=== PATIENT | female | born 1985 | race Caucasian/White ===

== ENCOUNTER 2016-12-08 15:21 | Emergency (ER) | payer MEDICAID ==
[~2016-12-08] VITALS: Ht 175.3 cm; Wt 98.5 kg
[~2016-12-08 15:21] MED LIST: ALBU8I INH; VITA100T2 PO
[2016-12-08 15:24] VITALS: BP 116/67; PULSE 96; RESP 18; TEMP 98.4; O2SAT 94
[2016-12-08] MEDS ORDERED: prenatal vitamin (15:46)
[2016-12-08] MEDS ORDERED: ALBUAER3 INH ×2 (15:46→17:14)
[2016-12-08] MEDS ORDERED: IPRASOL INH ×2 (15:46→17:14)
[2016-12-08 15:51] VITALS: BP 113/73; PULSE 90; RESP 21; TEMP 99.3; O2SAT 97
--- NOTE | 2016-12-08 16:21 | PD ---
HPI Chief Complaint: Cold / Flu Symptoms Time Seen by Provider: 15:59 Travel History International Travel<30 days: No Contact w/Intl Traveler<30days: No Traveled to known affect area: No History of Present Illness HPI Patient is a 31-year-old female 33 weeks presents emergency department for evaluation of cough and sinus congestion. States been going on for the past few days. She also states that she noticed a small pustule forming on the right side of her face just lateral to the nose. She is wondering if he she decided since is coming through her pores. Despite being 33 weeks the patient still is smoking. She denies any abdominal pain abdominal cramping vaginal bleeding or vaginal discharge or loss of fluid. States symptoms are moderate, constant, no alleviating or exacerbating factors. PFSH Past Medical History Anemia: Yes Arthritis: Yes Asthma: Yes Blood Disorders: No Bipolar Disorder: Yes Anxiety: Yes Depression: Yes Heart Rhythm Problems: No Cancer: No Cardiovascular Problems: No High Cholesterol: No Chest Pain: No Congestive Heart Failure: No COPD: Yes Cerebrovascular Accident: No Diabetes: Yes (HX OF TYPE 2 DIABETES - PT STATES SHE "LOST WEIGHT AND IT WENT AWAY") Patient Takes Glucophage: No Diminished Hearing: No Endocrine: No Gastrointestinal Disorders: Yes (GALLSTONES) GERD: No Genitourinary: No Headaches: Yes Hiatal Hernia: No Hypertension: No Immune Disorder: No Implanted Vascular Access Dvce: No Kidney Stones: No Musculoskeletal: Yes (CHRONIC RIGHT KNEE PAIN, BACK AND NECK PAIN) Neurologic: No Psychiatric: Yes Reproductive: No Respiratory: Yes (ASTHMA ) Immunizations Current: Yes Migraines: No Myocardial Infarction: No Renal Failure: No Seizures: No Sleep Apnea: Yes Thyroid Disease: No Ulcer: No ?: : 3 Para: 3 Miscarriage: 0 : 0 Past Surgical History Abdominal Surgery: Yes (gallbladder 06/2013) Appendectomy: No Cardiac Surgery: No Cholecystectomy: Yes (JULY 2013) Ear Surgery: No Endocrine Surgery: No Eye Surgery: No Genitourinary Surgery: No Gynecologic Surgery: No Insulin Pump: No Joint Replacement: No Oral Surgery: No Thoracic Surgery: No Other Surgery: Yes (MOLE REMOVED) Social History Alcohol Use: Yes (DAILY 3) Tobacco Use: Yes (half a pack) Substance Use: No (DENISES cocaine and pot IV DRUG) Allergies-Medications (Allergen,Severity, Reaction): Coded Allergies: No Known Allergies (Verified , 12/08/16) Reported Meds & Prescriptions Reported Meds & Active Scripts Active Duoneb (Ipratropium-Albuterol Neb) 0.5-2.5 Mg/3 Ml Neb 1 Nebule INH Q4HR NEB Proair Hfa 8.5 GM Inh (Albuterol Sulfate) 90 Mcg/Act Aer 2 Puff INH Q4-6H PRN 108 mcg/actuation Keflex (Cephalexin) 500 Mg Capsule 500 Mg PO Q6H 7 Days Reported [ vitamin] Review of Systems Except as stated in HPI: all other systems reviewed are Neg Physical Exam Narrative GENERAL: Well-developed well-nourished, congested nasally voice. SKIN: Focused skin assessment warm/dry. HEAD: Atraumatic. Normocephalic. EYES: Pupils equal and round. No scleral icterus. No injection or drainage. ENT: No nasal bleeding or discharge. Mucous membranes pink and moist. TMs clear bilaterally, oropharynx showing minimal erythema, uvula midline, tonsils normal. NECK: Trachea midline. No JVD. CARDIOVASCULAR: Regular rate and rhythm. No murmur appreciated. RESPIRATORY: No accessory muscle use. Inspiratory next or wheezes and rhonchi. Breath sounds equal bilaterally. GASTROINTESTINAL: Abdomen soft, non-tender, gravid abdomen. Hepatic and splenic margins not palpable. MUSCULOSKELETAL: No obvious deformities. No clubbing. No cyanosis. No edema. NEUROLOGICAL: Awake and alert. No obvious cranial nerve deficits. Motor grossly within normal limits. Normal speech. PSYCHIATRIC: Appropriate mood and affect; insight and judgment normal. Data Data Last Documented VS Vital Signs Date Time Temp Pulse Resp B/P (MAP) Pulse Ox O2 Delivery O2 Flow Rate FiO2 12/08/16 18:14 89 20 129/64 (85) 97 12/08/16 15:51 99.3 Room Air Orders Orders Chest, Pa & Lat (12/08/16 ) Albuterol-Ipratropium Neb (Duoneb Neb) (12/08/16 17:15) MDM Medical Decision Making Medical Screen Exam Complete: Yes Emergency Medical Condition: Yes Differential Diagnosis Sinusitis, pneumonia, URI. Narrative Course Patient roomed in emergency department, recommended to her have a chest x-ray which is negative for infiltrate or effusion: Last 24 hours Impressions Chest X-Ray 12/08/16 0000 Signed Impressions: Service Date/Time: Thursday, December 08, 2016 16:37 - CONCLUSION: Hypoinflation. No acute cardiopulmonary process. Reji Campuzano MD Patient given DuoNeb, feeling somewhat better she is stable for discharge on Keflex for sinusitis. 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 heart tones were confirmed at bedside. No indication further workup in the emergency department. Diagnosis Primary Impression: Sinusitis Patient Instructions: Cigarette Smoking and Your Health (GEN), Effects of Smoking, Alcohol, and Medicines on (GEN), General Instructions, How to Stop Smoking (GEN), Sinusitis (GEN) Med/Other Pt SpecificInfo: Prescription(s) given Scripts Ipratropium-Albuterol Neb (Duoneb) 0.5-2.5 Mg/3 Ml Neb 1 NEBULE INH Q4HR NEB for SHORTNESS OF BREATH, #120 NEBULE 0 Refills Prov: Franklin Gonzales MD 12/08/16 Albuterol 8.5 GM Inh (Proair Hfa 8.5 GM Inh) 90 Mcg/Act Aer 2 PUFF INH Q4-6H Y for SHORTNESS OF BREATH, #1 INHALER 0 Refills 108 mcg/actuation Prov: Franklin Gonzales MD 12/08/16 Cephalexin (Keflex) 500 Mg Capsule 500 MG PO Q6H for Infection for 7 Days, #28 CAP 0 Refills Prov: Franklin Gonzales MD 12/08/16 Disposition: 01 DISCHARGE HOME Condition: Stable Franklin Gonzales MD Dec 08, 2016 16:21
--- NOTE | 2016-12-08 16:51 | RADRPT ---
EXAM DATE/TIME: 12/08/2016 16:37 [facility] COMPARISON: No previous studies available for comparison. INDICATIONS : Cough, chest pain. MEDICAL HISTORY : Chronic obstructive pulmonary disease. Asthma. SURGICAL HISTORY : None. ENCOUNTER: Initial ACUITY: 1 day PAIN SCORE: 0/10 LOCATION: Bilateral chest FINDINGS: PA and lateral views of the chest demonstrate the lungs to be symmetrically, but under aerated withou t evidence of mass, infiltrate or effusion. The cardiomediastinal contours are unremarkable. Osseou s structures are intact. CONCLUSION: Hypoinflation. No acute cardiopulmonary process. Reji Campuzano MD on December 08, 2016 at 16:49 Board Certified Radiologist. This report was verified electronically.
[2016-12-08] MEDS ORDERED: CEPH-460 PO (17:08)
[2016-12-08] MEDS ORDERED: RESP: ALBUTEROL 2.5 MG/IPRATROPIUM 0.5 MG NEB (SCH) NEB ONE (17:15)
[2016-12-08 18:14] VITALS: BP 129/64
== END 2016-12-08 18:19 | disposition home or self-care (01) ==
LOC: NEPD 15:21
DX: O26.893 Other specified pregnancy related conditions, third trimester (principal); J32.9 Chronic sinusitis, unspecified; O99.013 Anemia complicating pregnancy, third trimester; O99.343 Other mental disorders complicating pregnancy, third trimester; F31.9 Bipolar disorder, unspecified; J44.9 Chronic obstructive pulmonary disease, unspecified; J45.909 Unspecified asthma, uncomplicated; O99.333 Smoking (tobacco) complicating pregnancy, third trimester; Z3A.33 33 weeks gestation of pregnancy
CPT/HCPCS: 71020; 94664; 99284

== ENCOUNTER 2016-12-13 16:55 | Emergency (ER) | payer MEDICAID ==
[~2016-12-13] VITALS: Ht 175.3 cm; Wt 125.0 kg
[~2016-12-13 16:55] MED LIST changes: -ALBU8I INH; +ALBUAER3 INH; +CEPH-460 PO; +IPRASOL INH; -VITA100T2 PO; +prenatal vitamin
[2016-12-13 17:12] VITALS: O2SAT 97
[2016-12-13] MEDS ORDERED: ALBUTEROL SULFATE 90 MCG/ACT HFA 8 GM INHALER INH ONE (17:15)
[2016-12-13] MEDS ORDERED: SODIUM CHLORIDE 0.9% FLUSH 10 ML FLUSH IVF PRN ×2 (17:15)
[2016-12-13 17:26] VITALS: BP 119/73; PULSE 98; RESP 18; TEMP 98.2
--- NOTE | 2016-12-13 17:31 | RADRPT ---
EXAM DATE/TIME: 12/13/2016 17:11 [facility] COMPARISON: CHEST SINGLE AP, April 21, 2015, 22:02. INDICATIONS : Short of breath. MEDICAL HISTORY : None. SURGICAL HISTORY : None. ENCOUNTER: Initial ACUITY: 1 day PAIN SCORE: 7/10 LOCATION: Bilateral chest FINDINGS: A single view of the chest demonstrates the lungs to be symmetrically aerated without evidence of mas s, infiltrate or effusion. The cardiomediastinal contours are unremarkable. Osseous structures are intact. CONCLUSION: No acute disease. Azar Rodriguez MD on December 13, 2016 at 17:29 Board Certified Radiologist. This report was verified electronically.
[2016-12-13 17:52] LABS: AUTOMATED NEUTROPHIL # 5.7 TH/MM3 (1.8-7.7); BASOPHIL % 0.4 % (0.0-2.0); EOSINOPHIL # 0.1 TH/MM3 (0-0.4); EOSINOPHIL % 1.6 % (0.0-4.0); HEMATOCRIT 31.8 % (35.0-46.0); HEMO FLAGS DIFF FINAL; LYMPH % 26.1 % (9.0-44.0); LYMPHOCYTE # 2.2 TH/MM3 (1.0-4.8); MEAN CELL VOLUME 82.3 FL (80.0-100.0); MEAN CORPUSCULAR HEMOGLOBIN 27.3 PG (27.0-34.0); MEAN CORPUSCULAR HGB CONC 33.2 % (32.0-36.0); MONO % 4.6 % (0.0-8.0); NEUT % 67.3 % (16.0-70.0); PLATELET COUNT 195 TH/MM3 (150-450); RED BLOOD COUNT 3.86 MIL/MM3 (4.00-5.30); RED CELL DISTRIBUTION WIDTH 13.7 % (11.6-17.2); WHITE BLOOD COUNT 8.5 TH/MM3 (4.0-11.0)
--- NOTE | 2016-12-13 18:06 | PD ---
HPI Chief Complaint: Respiratory Distress Time Seen by Provider: 17:07 Travel History International Travel<30 days: No Contact w/Intl Traveler<30days: No Traveled to known affect area: No History of Present Illness HPI The patient is 31 years old and complains of shortness of breath. She has history of asthma and COPD. She smokes. She is 37 weeks . 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 She has no chest pain. She does complain of low back pain primarily on the left. PFSH Past Medical History Anemia: Yes Arthritis: Yes Asthma: Yes Blood Disorders: No Bipolar Disorder: Yes Anxiety: Yes Depression: Yes Heart Rhythm Problems: No Cancer: No Cardiovascular Problems: No High Cholesterol: No Chest Pain: No Congestive Heart Failure: No COPD: Yes Cerebrovascular Accident: No Diabetes: Yes (HX OF TYPE 2 DIABETES - PT STATES SHE "LOST WEIGHT AND IT WENT AWAY") Patient Takes Glucophage: No Diminished Hearing: No Endocrine: No Gastrointestinal Disorders: Yes (GALLSTONES) GERD: No Genitourinary: No Headaches: Yes Hiatal Hernia: No Hypertension: No Immune Disorder: No Implanted Vascular Access Dvce: No Kidney Stones: No Musculoskeletal: Yes (CHRONIC RIGHT KNEE PAIN, BACK AND NECK PAIN) Neurologic: No Psychiatric: Yes Reproductive: No Respiratory: Yes (ASTHMA ) Immunizations Current: Yes Migraines: No Myocardial Infarction: No Renal Failure: No Seizures: No Sleep Apnea: Yes Thyroid Disease: No Ulcer: No ?: : 3 Para: 3 Miscarriage: 0 : 0 Past Surgical History Abdominal Surgery: Yes (gallbladder 06/2013) Appendectomy: No Cardiac Surgery: No Cholecystectomy: Yes (JULY 2013) Ear Surgery: No Endocrine Surgery: No Eye Surgery: No Genitourinary Surgery: No Gynecologic Surgery: No Insulin Pump: No Joint Replacement: No Neurologic Surgery: No Oral Surgery: No Thoracic Surgery: No Other Surgery: Yes (MOLE REMOVED) Social History Alcohol Use: Yes (DAILY 3) Tobacco Use: Yes (half a pack) Substance Use: No (DENISES cocaine and pot IV DRUG) Allergies-Medications (Allergen,Severity, Reaction): Coded Allergies: No Known Allergies (Verified , 12/08/16) Reported Meds & Prescriptions Reported Meds & Active Scripts Active Duoneb (Ipratropium-Albuterol Neb) 0.5-2.5 Mg/3 Ml Neb 1 Nebule INH Q4HR NEB Proair Hfa 8.5 GM Inh (Albuterol Sulfate) 90 Mcg/Act Aer 2 Puff INH Q4-6H PRN 108 mcg/actuation Keflex (Cephalexin) 500 Mg Capsule 500 Mg PO Q6H 7 Days Reported [ vitamin] Physical Exam Narrative GENERAL: 31 yo F, WNWD, speaking sentences SKIN: Warm and dry. HEAD: Atraumatic. Normocephalic. EYES: Pupils equal and round. No scleral icterus. No injection or drainage. ENT: No nasal bleeding or discharge. Mucous membranes pink and moist. NECK: Trachea midline. No JVD. CARDIOVASCULAR: Regular rate and rhythm. RESPIRATORY: Lungs clear. No significant tachypnea. GASTROINTESTINAL: Abdomen soft, non-tender, nondistended. Hepatic and splenic margins not palpable. MUSCULOSKELETAL: Extremities without clubbing, cyanosis, or edema. No obvious deformities. NEUROLOGICAL: Awake and alert. No obvious cranial nerve deficits. Motor grossly within normal limits. Five out of 5 muscle strength in the arms and legs. Normal speech. PSYCHIATRIC: Appropriate mood and affect; insight and judgment normal. Data Data Last Documented VS Vital Signs Date Time Temp Pulse Resp B/P (MAP) Pulse Ox O2 Delivery O2 Flow Rate FiO2 12/13/16 17:26 98.2 98 18 119/73 (88) 12/13/16 17:25 97 Nasal Cannula 2.00 VS reviewed Orders Orders Iv Access Insert/Monitor (12/13/16 17:07) Ecg Monitoring (12/13/16 17:07) Oximetry (12/13/16 17:07) Oxygen Administration (12/13/16 17:07) Chest, Single Ap (12/13/16 17:07) Sodium Chloride 0.9% Flush (Ns Flush) (12/13/16 17:15) Albuterol Hfa Inh (Proair Hfa Inh) (12/13/16 17:15) Electrocardiogram (12/13/16 17:07) Basic Metabolic Panel (Bmp) (12/13/16 17:07) Complete Blood Count With Diff (12/13/16 17:07) Oxygen Administration (12/13/16 17:07) Sodium Chloride 0.9% Flush (Ns Flush) (12/13/16 17:15) Urinalysis - C+S If Indicated (12/13/16 18:06) Acetaminophen (Tylenol) (12/13/16 18:15) Labs Laboratory Tests Test 12/13/16 17:21 12/13/16 18:14 White Blood Count 8.5 TH/MM3 Red Blood Count 3.86 MIL/MM3 Hemoglobin 10.5 GM/DL Hematocrit 31.8 % Mean Corpuscular Volume 82.3 FL Mean Corpuscular Hemoglobin 27.3 PG Mean Corpuscular Hemoglobin Concent 33.2 % Red Cell Distribution Width 13.7 % Platelet Count 195 TH/MM3 Mean Platelet Volume 9.8 FL Neutrophils (%) (Auto) 67.3 % Lymphocytes (%) (Auto) 26.1 % Monocytes (%) (Auto) 4.6 % Eosinophils (%) (Auto) 1.6 % Basophils (%) (Auto) 0.4 % Neutrophils # (Auto) 5.7 TH/MM3 Lymphocytes # (Auto) 2.2 TH/MM3 Monocytes # (Auto) 0.4 TH/MM3 Eosinophils # (Auto) 0.1 TH/MM3 Basophils # (Auto) 0.0 TH/MM3 CBC Comment DIFF FINAL Differential Comment Blood Urea Nitrogen 4 MG/DL Creatinine 0.59 MG/DL Random Glucose 126 MG/DL Calcium Level 8.1 MG/DL Sodium Level 138 MEQ/L Potassium Level 3.5 MEQ/L Chloride Level 106 MEQ/L Carbon Dioxide Level 23.6 MEQ/L Anion Gap 8 MEQ/L Estimat Glomerular Filtration Rate 117 ML/MIN Urine Color YELLOW Urine Turbidity HAZY Urine pH 6.0 Urine Specific [place] 1.025 Urine Protein 30 mg/dL Urine Glucose (UA) NEG mg/dL Urine Ketones NEG mg/dL Urine Occult Blood NEG Urine Nitrite NEG Urine Bilirubin NEG Urine Urobilinogen 2.0 MG/DL Urine Leukocyte Esterase NEG Urine RBC 1 /hpf Urine WBC 2 /hpf Urine Squamous Epithelial Cells 13 /hpf Urine Mucus FEW /lpf Microscopic Urinalysis Comment CULT NOT INDICATED MDM Medical Decision Making Medical Screen Exam Complete: Yes Emergency Medical Condition: Yes Medical Record Reviewed: Yes Differential Diagnosis Asthma, COPD, anemia, PE, UTI Narrative Course CBC & BMP Diagram 12/13/16 17:21 Calcium Level 8.1 L Last 24 hours Impressions Chest X-Ray 12/13/16 4830 Signed Impressions: Service Date/Time: Tuesday, December 13, 2016 17:11 - CONCLUSION: No acute disease. Azar Rodriguez MD Pt received inhaler and experienced significant relief. UA: No UTI The patient is ready for discharge. Evaluation by obstetrics offered. Follow up with [facility] Manager Lilian Duenas. Diagnosis Primary Impression: Dyspnea Qualified Codes: R06.09 - Other forms of dyspnea Additional Impressions: Wheezing Low back pain Qualified Codes: M54.5 - Low back pain Referrals: [facility] 3 days Med/Other Pt SpecificInfo: Prescription(s) given Disposition: DISCHARGE HOME Condition: Stable Carlo Peralta MD Dec 13, 2016 18:06
[2016-12-13 18:14] LABS: BICARBONATE 23.6 MEQ/L (21.0-32.0); POTASSIUM 3.5 MEQ/L (3.5-5.1)
[2016-12-13] MEDS ORDERED: ACETAMINOPHEN 325 MG TAB PO ONE (18:15)
[2016-12-13 19:10] LABS: BLOOD, URINE NEG (NEG); COMMENT (UR) CULT NOT INDICATED; CULTURE IF INDICATED CULT NOT INDICATED; GLUCOSE,URINE NEG (NEG); KETONE, URINE NEG (NEG); MUCUS URINE FEW /lpf (OCC); NITRITE,URINE NEG (NEG); SQUAMOUS EPITHELIAL CELL URINE 13 /hpf (0-5); URINE COLOR YELLOW (YELLW/STRAW)
--- NOTE | 2016-12-14 14:16 | EKG ---
Date Performed: 12/13/2016 Time Performed: 17:18:17 PTAGE: 31 years EKG: Sinus rhythm NORMAL ECG Compared to prior tracing no significant change PREVIOUS TRACING : 01/25/2016 23.54 DOCTOR: Blu Hoff Interpretating Date/Time 12/14/2016 14:15:28
== END 2016-12-13 20:32 | disposition home or self-care (01) ==
LOC: NEPD 16:55
DX: O99.513 Diseases of the respiratory system complicating pregnancy, third trimester (principal); O99.333 Smoking (tobacco) complicating pregnancy, third trimester; J45.909 Unspecified asthma, uncomplicated; J44.9 Chronic obstructive pulmonary disease, unspecified; M54.5 Low back pain; D64.9 Anemia, unspecified; Z3A.37 37 weeks gestation of pregnancy
CPT/HCPCS: 71010; 80048; 81001; 85025; 93005; 99285

== ENCOUNTER 2017-01-22 08:28 | Inpatient (IN) | payer MEDICAID ==
[2017-01-22] VITALS (38 sets, daily range): BP systolic 105–152; BP diastolic 61–95; PULSE 71–95; RESP 16–20; TEMP 97.8–98.6
[2017-01-22] MEDS ORDERED: LACTATED RINGER'S 1000 ML INJ 1,000 ML IV SCH (09:39)
[2017-01-22] MEDS ORDERED: LACTATED RINGER'S 1000 ML INJ 1,000 ML IV PRN (09:39)
[2017-01-22] MEDS ORDERED: LIDOCAINE HCL 1% 50 ML VIAL INFIL PRN (09:45)
[2017-01-22] MEDS ORDERED: ONDANSETRON HCL 4 MG/2 ML VIAL IV PUSH PRN (09:45)
[2017-01-22] MEDS ORDERED: LIDOCAINE HCL 1% 50 ML VIAL I-DERMAL PRN (09:45)
[2017-01-22] MEDS ORDERED: SODIUM CHLORID 0.9% 500 ML INJ 500 ML IV PRN (09:45)
[2017-01-22] MEDS ORDERED: MINERAL OIL 10 ML VIAL TOPICAL PRN (09:45)
[2017-01-22] MEDS ORDERED: CITRIC ACID-SODIUM CITRATE LIQ 30 ML UDC PO SCH (09:45)
[2017-01-22] MEDS ORDERED: OXYTOCIN 30 UNITS-500ML PREMIX 500 ML IV ONE (09:45)
--- NOTE | 2017-01-22 09:54 | HHI.HP ---
HPI Travel History International Travel<30 Days: No Contact w/Intl Traveler<30Days: No Known Affected Area: No History of Present Illness HPI 31 yr old at 41/4 weeks presents for induction of labor for postdates. Accompanied by significant other and adoptive parents. She is a patient of Lilian Duenas. Her GBS status is currently unknown. We will obtain her records from primary care's office. She denies contractions, LOF, and vaginal bleeding. She is planning to give her baby up for adoption. History Past Medical History Medical History: Denies Significant Hx Obstetric History Obstetric History 3 vaginal deliveries and all induced for postdates 1 early loss Past Surgical History Surgical History: No Previous Surgery Family History Family History: Negative Social History Alcohol Use: No Tobacco Use: No Substance Abuse: No Allergies-Medications (Allergen,Severity, Reaction): Coded Allergies: No Known Allergies (Verified , 12/08/16) Home Meds Active Scripts Ipratropium-Albuterol Neb (Duoneb) 0.5-2.5 Mg/3 Ml Neb, 1 NEBULE INH Q4HR NEB for SHORTNESS OF BREATH, #120 NEBULE 0 Refills Prov:Franklin Gonzales MD 12/08/16 Albuterol 8.5 GM Inh (Proair Hfa 8.5 GM Inh) 90 Mcg/Act Aer, 2 PUFF INH Q4-6H Y for SHORTNESS OF BREATH, #1 INHALER 0 Refills 108 mcg/actuation Prov:Franklin Gonzales MD 12/08/16 Cephalexin (Keflex) 500 Mg Capsule, 500 MG PO Q6H for Infection for 7 Days, #28 CAP 0 Refills Prov:Franklin Gonzales MD 12/08/16 Reported Medications [ vitamin] No Conflict Check 12/08/16 Review of Systems Except as stated in HPI: all other systems reviewed are Neg Physical Exam Narrative GENERAL: Well-nourished, well-developed patient. SKIN: Warm and dry. HEAD: Normocephalic and atraumatic. EYES: No scleral icterus. No injection or drainage. ENT: No nasal drainage noted. Mucous membranes pink. Airway patent. NECK: Supple, trachea midline. No JVD. CARDIOVASCULAR: Regular rate and rhythm without murmurs, gallops, or rubs. RESPIRATORY: Breath sounds equal bilaterally. No accessory muscle use. ABDOMEN/GI: Abdomen soft, non-tender, bowel sounds present, no rebound, no guarding GENITOURINARY: Cervix: posterior Dilatation: 4-5cm Effacement: 30% Station: -2 Presentation: vertex Membranes: intact Uterine Contractions: none FHT's: Category: 1 Baseline: 130s Reactive: yes Variability: moderate Decels: no EXTREMITIES: No cyanosis or edema. BACK: Nontender without obvious deformity. NEUROLOGICAL: Awake and alert. Motor and sensory grossly within normal limits. Caprini VTE Risk Assessment Caprini VTE Risk Assessment: No/Low Risk (score <= 1) Caprini Risk Assessment Model Point Value = 1 Point Value = 2 Point Value = 3 Point Value = 5 Age 41-60 Minor surgery BMI > 25 kg/m2 Swollen legs Varicose veins or History of unexplained or recurrent spontaneous Oral contraceptives or hormone replacement Sepsis (< 1 month) Serious lung disease, including pneumonia (< 1 month) Abnormal pulmonary function Acute myocardial infarction Congestive heart failure (< 1 month) History of inflammatory bowel disease Medical patient at bed rest Age 61-74 Arthroscopic surgery Major open surgery (> 45 min) Laparoscopic surgery (> 45 min) Malignancy Confined to bed (> 72 hours) Immobilizing plaster cast Central venous access Age >= 75 History of VTE Family history of VTE Factor V Leiden Prothrombin [id number] Lupus anticoagulant Anticardiolipin antibodies Elevated serum homocysteine Heparin-induced thrombocytopenia Other congenital or acquired thrombophilia Stroke (< 1 month) Elective arthroplasty Hip, pelvis, or leg fracture Acute spinal cord injury (< 1 month) Prophylaxis Regimen Total Risk Factor Score Risk Level Prophylaxis Regimen 0-1 Low Early ambulation 2 Moderate Order ONE of the following: *Sequential Compression Device (SCD) *Heparin 5000 units SQ BID 3-4 Higher Order ONE of the following medications: *Heparin 5000 units SQ TID *Enoxaparin/Lovenox 40 mg SQ daily (WT < 150 kg, CrCl > 30 mL/min) *Enoxaparin/Lovenox 30 mg SQ daily (WT < 150 kg, CrCl > 10-29 mL/min) *Enoxaparin/Lovenox 30 mg SQ BID (WT < 150 kg, CrCl > 30 mL/min) AND/OR *Sequential Compression Device (SCD) 5 or more Highest Order ONE of the following medications: *Heparin 5000 units SQ TID (Preferred with Epidurals) *Enoxaparin/Lovenox 40 mg SQ daily (WT < 150 kg, CrCl > 30 mL/min) *Enoxaparin/Lovenox 30 mg SQ daily (WT < 150 kg, CrCl > 10-29 mL/min) *Enoxaparin/Lovenox 30 mg SQ BID (WT < 150 kg, CrCl > 30 mL/min) AND *Sequential Compression Device (SCD) Data Data Vital Signs Reviewed: Yes Orders Orders Admit To Inpatient (01/22/17 ) Code Status (01/22/17 09:39) Vital Signs (Adult) .Per protocol (01/22/17 09:39) Activity Oob Ad Kadie (01/22/17 09:39) Heart (01/22/17 09:39) Amnioinfusion (01/22/17 09:39) Urinary Catheter Management .ONCE (01/22/17 09:39) Diet Liquid (01/22/17 Breakfast) Lactated Ringer's 1000 Ml Inj (Lr 1000 M (01/22/17 09:39) Lactated Ringer's 1000 Ml Inj (Lr 1000 M (01/22/17 09:39) Sodium Chlorid 0.9% 500 Ml Inj (Ns 500 M (01/22/17 09:45) Sodium Chlor 0.9% 1000 Ml Inj (Ns 1000 M (01/22/17 09:59) Lidocaine 1% Inj (50 Ml) (Xylocaine 1% I (01/22/17 09:45) Citric Acid-Sodium Citrate Liq (Bicitra (01/22/17 09:45) Ondansetron Inj (Zofran Inj) (01/22/17 09:45) Fentanyl Inj (Fentanyl Inj) (01/22/17 09:45) Fentanyl Inj (Fentanyl Inj) (01/22/17 09:45) Complete Blood Count With Diff (01/22/17 09:39) Hold Clot (01/22/17 09:39) Abo/Rh Blood Type (01/22/17 09:39) Urinalysis - C+S If Indicated (01/22/17 09:39) Drug Screen, Random Urine (01/22/17 09:39) Resp Oxygen Non Rebreathe Mask (01/22/17 ) ^ Epidural / Intrathecal Infus (01/22/17 09:39) Oxytocin 30 Units-500ml Premix (Pitocin (01/22/17 09:45) Lidocaine 1% Inj (50 Ml) (Xylocaine 1% I (01/22/17 09:45) Light Mineral Oil (Muri-Lube Oil) (01/22/17 09:45) Inpatient Certification (01/22/17 ) Specimen To Be Collected PRN (01/22/17 09:39) Specimen To Be Collected PRN (01/22/17 09:39) Assessment/Plan Assessment and Plan 31 yr old at 41/4 weeks presents for induction of labor for postdates. 1. IUP -category 1, reassuring 2. Induction of Labor -4-5cm, 30%, -2, Carlson score of 5 -will consider AROM, cytotec or pitocin for induction -continue routine OB care 3. GBS unknown, will get records faxed over from Lilian Duenas's office sdw Dr. Nieves and Keena Craven MD R1 Jan 22, 2017 09:54
[2017-01-22] MEDS ORDERED: SODIUM CHLOR 0.9% 1000 ML INJ 1,000 ML IV PRN (09:59)
[2017-01-22 10:05] LABS: BASOPHIL % 0.3 % (0.0-2.0); EOSINOPHIL # 0.1 TH/MM3 (0-0.4); EOSINOPHIL % 1.3 % (0.0-4.0); HEMATOCRIT 27.7 % (35.0-46.0); HEMOGLOBIN 9.2 GM/DL (11.6-15.3); LYMPHOCYTE # 1.8 TH/MM3 (1.0-4.8); MEAN CELL VOLUME 82.1 FL (80.0-100.0); MEAN CORPUSCULAR HEMOGLOBIN 27.2 PG (27.0-34.0); MEAN CORPUSCULAR HGB CONC 33.1 % (32.0-36.0); MEAN PLATELET VOLUME 10.8 FL (7.0-11.0); MONO % 5.3 % (0.0-8.0); MONOCYTE # 0.4 TH/MM3 (0-0.9); NEUT % 68.1 % (16.0-70.0); PLATELET COUNT 146 TH/MM3 (150-450); RED BLOOD COUNT 3.37 MIL/MM3 (4.00-5.30); RED CELL DISTRIBUTION WIDTH 14.3 % (11.6-17.2); WHITE BLOOD COUNT 7.3 TH/MM3 (4.0-11.0)
[2017-01-22 10:20] LABS: BACTERIA, URINE OCC /hpf; BILIRUBIN, URINE NEG (NEG); BLOOD, URINE NEG (NEG); GLUCOSE,URINE NEG (NEG); KETONE, URINE NEG (NEG); MUCUS URINE FEW /lpf (OCC); NITRITE,URINE NEG (NEG); SQUAMOUS EPITHELIAL CELL URINE 15 /hpf (0-5); URINE COLOR YELLOW (YELLW/STRAW); URINE LEUKOCYTE ESTERASE TRACE (NEG)
[2017-01-22] MEDS ORDERED: MISOPROSTOL 100 MCG TAB VAGINAL ONE (11:30)
[2017-01-22] MEDS ORDERED: PILL SPLITTER OTHER PRN (11:30)
--- NOTE | 2017-01-22 15:50 | PD.LABORPN ---
Subjective Subjective AROM by Dr. Nieves. Patient doing well. No complaints at this time. Objective Vital Signs Vital Signs Date Time Temp Pulse Resp B/P (MAP) Pulse Ox O2 Delivery O2 Flow Rate FiO2 01/22/17 14:36 78 117/69 (85) 01/22/17 14:34 18 01/22/17 14:34 98.4 01/22/17 11:45 16 01/22/17 11:30 79 121/66 (84) Objective Pelvic Exam: Cervix: mid Dilatation: 6cm Effacement: 50% Station: -1 Presentation: vertex Membranes: AROM Uterine Contractions: FHT's: Category: 1 Baseline: 120s Reactive: yes Variability: moderate Decels: no Weeks Gestation: 41 Gest Age Assessed Date: Jan 22, 2017 Gest Age Assessed Time: 09:15 Pt started active labor?: Yes Active labor start date: Jan 22, 2017 Active labor start time: 09:15 Medical induction of labor?: Yes Medical induction start date: Jan 22, 2017 Medical induction start time: 11:30 Artificial rupture of membrane: Yes Artificial ROM date: Jan 22, 2017 Artifical ROM time: 15:49 Assessment/Plan Assessment and Plan 31 yr old at 41/4 weeks in active labor 1. IUP -category 1, reassuring 2.Labor -s/p AROM, cytotec x1 -start pitocin -continue routine OB care 3. GBS negative, confirmed by faxed records sdw Dr. Nieves and Keena Llanes MD R1 Jan 22, 2017 15:50
[2017-01-22] MEDS ORDERED: MEASLES, MUMPS, RUBELLA VACCINE 0.5 ML VIAL SQ ONE (16:00)
[2017-01-22] MEDS ORDERED: DIPHTH/TETANUS/ACEL PERTUSSIS (BOOSTER) 0.5 ML VIAL/PFS IM ONE (16:00)
[2017-01-22] MEDS ORDERED: OXYTOCIN 30 UNITS-500ML PREMIX 500 ML IV SCH (16:45)
[2017-01-22] MEDS ORDERED: fentaNYL 2MCG-BUPIV 0.125% INJ 100 ML ONE (17:22)
[2017-01-22] MEDS ORDERED: fentaNYL 2MCG-BUPIV 0.125% 100 ML EPIDURAL SCH (18:30)
[2017-01-22] MEDS ORDERED: NO SYSTEM NARCOTICS PRN (18:30)
[2017-01-22] MEDS ORDERED: ePHEDrine/NS 25 MG/5 ML SYR IV PUSH PRN (18:30)
[2017-01-22] MEDS ORDERED: DO NOT ADMINISTER ANTICOAGULANTS PRN (18:30)
[2017-01-22] MEDS ORDERED: ALUMINUM/MAGNESIUM/SIMETH 30 ML CUP PO PRN (19:00)
[2017-01-22] MEDS ORDERED: BENZOCAINE 20% TOPICAL SPRAY 60 ML CAN TOPICAL PRN (19:00)
[2017-01-22] MEDS ORDERED: WITCH HAZEL 50%/GLYCERIN 12.5% 40 PAD JAR TOPICAL PRN (19:00)
[2017-01-22] MEDS ORDERED: ONDANSETRON ODT 4 MG TAB PO PRN (19:00)
[2017-01-22] MEDS ORDERED: SODIUM CHLORIDE 0.9% FLUSH 10 ML FLUSH IV FLUSH PRN (19:00)
[2017-01-22] MEDS ORDERED: ZOLPIDEM TARTRATE 5 MG TAB PO PRN (19:00)
[2017-01-22] MEDS ORDERED: ACETAMINOPHEN 325 MG TAB PO PRN (19:00)
--- NOTE | 2017-01-22 19:07 | PD.OB.DELI ---
Weeks gestation: 41 Gest age assessed date: Jan 22, 2017 Gest age assessed time: 09:15 Pt started active labor?: Yes Active labor start date: Jan 22, 2017 Active labor start time: 09:15 Medical induction of labor?: Yes Medical induction start date: Jan 22, 2017 Medical induction start time: 11:30 Artificial rupture of membrane: Yes Artificial ROM date: Jan 22, 2017 Artifical ROM time: 15:49 Anesthesia: Epidural Episiotomy: None Vaginal Delivery: Normal, Spontaneous Presentation: Occiput anterior Nuchal Cord: None Delayed cord clamping (45 sec): Yes Infant: Male Delivery date: Jan 22, 2017 Delivery time: 06:49 One Minute : 7 Five Minute : 9 Weight: 3025g Placenta: Spontaneous delivery Laceration: No lacerations Keena Fairbanks MD R1 Jan 22, 2017 19:07
[2017-01-22] MEDS ORDERED: SODIUM CHLORIDE 0.9% FLUSH 10 ML FLUSH IV FLUSH SCH (21:00)
[2017-01-22] MEDS: IBUPROFEN 600 MG TAB PO PRN (22:29)
[2017-01-22] MEDS: DOCUSATE SODIUM 50 MG/SENNA 8.6 MG TAB PO PRN (22:30)
[2017-01-23 07:30] VITALS: BP 98/64; PULSE 76; RESP 18; TEMP 97.7
[2017-01-23] MEDS ORDERED: KETOROLAC TROMETHAMINE 60 MG/2 ML (IM) VIAL IM ONE (09:15)
--- NOTE | 2017-01-23 09:24 | HHI.OB ---
Subjective Remarks 31 year old female s/p at 41 wks gestation, PPD 1. AFVSS. Patient reports she is feeling well. Bleeding is decreasing and pain is well- controlled. Baby is up for adoption and is in separate room with adoptive parents. Ambulating without difficulties. She is tolerating a diet without nausea or vomiting. She has not had a bowel movement. She has passed gas. Denies chest pain, dysuria, shortness of breath, or calf pain. Objective Vitals/I&O Vital Signs Date Time Temp Pulse Resp B/P (MAP) Pulse Ox O2 Delivery O2 Flow Rate FiO2 01/23/17 07:30 97.7 76 18 98/64 (75) 01/22/17 22:10 98.0 84 18 111/73 (86) 01/22/17 20:15 98.6 18 01/22/17 20:01 86 122/76 (91) 01/22/17 19:45 18 01/22/17 19:31 81 126/84 (98) 01/22/17 19:27 18 01/22/17 19:08 16 01/22/17 19:00 88 127/73 (91) 01/22/17 18:45 95 01/22/17 18:35 86 01/22/17 18:34 20 01/22/17 18:31 79 105/61 (76) 01/22/17 18:30 79 01/22/17 18:28 20 01/22/17 18:25 74 01/22/17 18:20 71 01/22/17 18:16 76 116/69 (85) 01/22/17 18:15 97.8 01/22/17 18:15 74 01/22/17 18:10 77 01/22/17 18:05 78 01/22/17 18:01 74 124/75 (91) 01/22/17 18:00 76 01/22/17 17:58 20 01/22/17 17:56 79 130/70 (90) 01/22/17 17:55 82 01/22/17 17:51 83 138/81 (100) 01/22/17 17:50 83 01/22/17 17:46 87 147/95 (112) 01/22/17 17:45 88 20 01/22/17 17:41 82 01/22/17 17:41 136/90 (105) 01/22/17 17:40 82 01/22/17 17:36 87 152/92 (112) 01/22/17 17:35 80 01/22/17 17:32 79 01/22/17 17:29 20 01/22/17 16:03 85 117/80 (92) 01/22/17 14:36 78 117/69 (85) 01/22/17 14:34 18 01/22/17 14:34 98.4 01/22/17 11:45 16 01/22/17 11:30 79 121/66 (84) Objective Remarks GENERAL: Well-nourished, well-developed patient. CARDIOVASCULAR: Regular rate and rhythm without murmurs, gallops, or rubs. RESPIRATORY: Breath sounds equal bilaterally. No accessory muscle use. ABDOMEN/GI: Abdomen soft, non-tender. Fundus: Firm, mildly tender at umbilicus. GENITOURINARY: Light to moderate bleeding. EXTREMITIES: No cyanosis or edema, non-tender, without signs of DVT. Medications and IVs Current Medications Medications (Trade) Dose Ordered Sig/Nadya Route Start Time Stop Time Status Last Admin (Pill Splitter) 1 ea UNSCH PRN OTHER 01/22/17 11:30 Miscellaneous Information No systemic narcotics to be given except... UNSCH PRN .XX 01/22/17 18:30 01/23/17 18:29 Miscellaneous Information DO NOT ADMINISTER ANY ANTICOAGUL... UNSCH PRN .XX 01/22/17 18:30 01/23/17 18:29 (NS Flush) 2 ml BID IV FLUSH 01/22/17 21:00 01/22/17 20:32 (NS Flush) 2 ml UNSCH PRN IV FLUSH 01/22/17 19:00 (Tylenol) 650 mg Q4H PRN PO 01/22/17 19:00 (Motrin) 600 mg Q6H PRN PO 01/22/17 19:00 01/22/17 22:29 (Americaine 20% Top Spr) 1 spray Q4H PRN TOPICAL 01/22/17 19:00 01/22/17 22:29 (Tucks Pads) 1 applic QID PRN TOPICAL 01/22/17 19:00 01/22/17 22:29 (Josefina-Colace) 2 tab Q12H PRN PO 01/22/17 19:00 01/22/17 22:30 (Ambien) 5 mg HS PRN PO 01/22/17 19:00 (Mag-Al Plus Susp Liq) 15 ml Q8H PRN PO 01/22/17 19:00 (Zofran Odt) 4 mg Q6H PRN PO 01/22/17 19:00 Assessment/Plan Assessment and Plan 31 yo female s/p , PPD 1 - AFVSS - Continue routine care - Motrin PRN pain; Toradol 30 mg IM x1 to replace a dose of Motrin this morning - Encourage OOB - Pelvic rest x 6 wks - Contraception: Undecided, considering Depo-Provera - Anticipate D/C 01/24 Cresencio Nieves MD R2 Jan 23, 2017 09:24
[2017-01-23 19:55] VITALS: BP 147/83; PULSE 82
[2017-01-23 20:15] VITALS: RESP 17; TEMP 98.1
[2017-01-24] MEDS: DOCUSATE SODIUM 50 MG/SENNA 8.6 MG TAB PO PRN (06:02)
[2017-01-24] MEDS: IBUPROFEN 600 MG TAB PO PRN (06:02)
[2017-01-24 08:00] VITALS: BP 141/80; PULSE 75; RESP 18; TEMP 98.4
[2017-01-24] MEDS ORDERED: SENN1TAB PO (08:08)
[2017-01-24] MEDS ORDERED: IBUP-232 PO (08:08)
--- NOTE | 2017-01-24 08:09 | HHI.DCPOC ---
Discharge Care Plan Diagnosis: (1) (spontaneous vaginal delivery) Report Symptoms to Your Doctor -Temperature above 100.5 degrees -Redness, of incision or excessive or foul smelling drainage -Unusual pain or calf pain -Increased vaginal bleeding -Painful or difficulty urinating -Feelings of extreme sadness or anxiety after 2 weeks Goals to Promote Your Health * To prevent worsening of your condition and complications * To maintain your health at the optimal level Directions to Meet Your Goals Take your medications as prescribed Follow your dietary instruction Follow activity as directed Ensure plenty of rest for recovery Drink fluids for hydration Keep your appointments as scheduled Take your immunizations and boosters as scheduled If your symptoms worsen call your PCP, if no PCP go to Urgent Care Center or Emergency Room Smoking is Dangerous to Your Health. Avoid second hand smoke Call the 24-hour crisis hotline for domestic abuse at Sujit Pratt MD R2 Jan 24, 2017 08:09
--- NOTE | 2017-01-24 08:09 | HHI.DCPOC ---
Discharge Care Plan Diagnosis: (1) (spontaneous vaginal delivery) Report Symptoms to Your Doctor -Temperature above 100.5 degrees -Redness, of incision or excessive or foul smelling drainage -Unusual pain or calf pain -Increased vaginal bleeding -Painful or difficulty urinating -Feelings of extreme sadness or anxiety after 2 weeks Goals to Promote Your Health * To prevent worsening of your condition and complications * To maintain your health at the optimal level Directions to Meet Your Goals Take your medications as prescribed Follow your dietary instruction Follow activity as directed Ensure plenty of rest for recovery Drink fluids for hydration Keep your appointments as scheduled Take your immunizations and boosters as scheduled If your symptoms worsen call your PCP, if no PCP go to Urgent Care Center or Emergency Room Smoking is Dangerous to Your Health. Avoid second hand smoke Call the 24-hour crisis hotline for domestic abuse at Sujit Pratt MD R2 Jan 24, 2017 08:09
--- NOTE | 2017-01-24 08:09 | HHI.DCPOC ---
Discharge Care Plan Diagnosis: (1) (spontaneous vaginal delivery) Report Symptoms to Your Doctor -Temperature above 100.5 degrees -Redness, of incision or excessive or foul smelling drainage -Unusual pain or calf pain -Increased vaginal bleeding -Painful or difficulty urinating -Feelings of extreme sadness or anxiety after 2 weeks Goals to Promote Your Health * To prevent worsening of your condition and complications * To maintain your health at the optimal level Directions to Meet Your Goals Take your medications as prescribed Follow your dietary instruction Follow activity as directed Ensure plenty of rest for recovery Drink fluids for hydration Keep your appointments as scheduled Take your immunizations and boosters as scheduled If your symptoms worsen call your PCP, if no PCP go to Urgent Care Center or Emergency Room Smoking is Dangerous to Your Health. Avoid second hand smoke Call the 24-hour crisis hotline for domestic abuse at Sujit Pratt MD R2 Jan 24, 2017 08:09
--- NOTE | 2017-01-24 08:10 | HHI.OB ---
Subjective Post Day: 2 Remarks Pt seen and examined this morning. day # 2 AFVSS overnight. Decreased lochia. Denies dysuria. No breast tenderness. She is feeding the baby via bottle. Appetite good. No nausea or vomiting. Patient endorses having a bowel movement. Ambulating well. Denies calf pain or shortness of breath. Otherwise, she is doing well this morning and has no other concerns. Objective Vitals/I&O Vital Signs Date Time Temp Pulse Resp B/P (MAP) Pulse Ox O2 Delivery O2 Flow Rate FiO2 01/23/17 20:15 98.1 01/23/17 20:15 17 01/23/17 19:55 82 147/83 (104) Objective Remarks GENERAL: Well-nourished, well-developed patient. CARDIOVASCULAR: Regular rate and rhythm without murmurs, gallops, or rubs. RESPIRATORY: Breath sounds equal bilaterally. No accessory muscle use. ABDOMEN/GI: Abdomen soft, non-tender. Fundus: Firm, mildly tender at umbilicus. GENITOURINARY: Light to moderate bleeding. EXTREMITIES: No cyanosis or edema, non-tender, without signs of DVT. Medications and IVs Current Medications Medications (Trade) Dose Ordered Sig/Nadya Route Start Time Stop Time Status Last Admin (Pill Splitter) 1 ea UNSCH PRN OTHER 01/22/17 11:30 (NS Flush) 2 ml BID IV FLUSH 01/22/17 21:00 01/22/17 20:32 (NS Flush) 2 ml UNSCH PRN IV FLUSH 01/22/17 19:00 (Tylenol) 650 mg Q4H PRN PO 01/22/17 19:00 (Motrin) 600 mg Q6H PRN PO 01/22/17 19:00 01/24/17 06:02 (Americaine 20% Top Spr) 1 spray Q4H PRN TOPICAL 01/22/17 19:00 01/22/17 22:29 (Tucks Pads) 1 applic QID PRN TOPICAL 01/22/17 19:00 01/22/17 22:29 (Josefina-Colace) 2 tab Q12H PRN PO 01/22/17 19:00 01/24/17 06:02 (Ambien) 5 mg HS PRN PO 01/22/17 19:00 (Mag-Al Plus Susp Liq) 15 ml Q8H PRN PO 01/22/17 19:00 (Zofran Odt) 4 mg Q6H PRN PO 01/22/17 19:00 (Flu (Quadrivalent) Vaccine Inj) 0.5 ml ONCE ONCE IM 01/24/17 10:00 01/24/17 10:01 Assessment/Plan Assessment and Plan 31 yo female s/p , PPD 2 - AFVSS, exam within normal limits - Continue routine care - Motrin PRN pain; Toradol 30 mg IM x1 given 01/25 - Encourage OOB - Pelvic rest x 6 wks - Contraception: Undecided, considering Depo-Provera. Patient states she will discuss at her follow-up appointment in 6 weeks -Patient be discharged home today - Of note, baby will be placed up for adoption DW: Dr. Herbert Discharge Planning Today with a 6 week follow-up Of note, baby will be put up for adoption Sujit Pratt MD R2 Jan 24, 2017 08:10
[2017-01-24] MEDS ORDERED: INFLUENZA VIRUS VACCINE (QUADRIVALENT) 0.5 ML SYR IM ONE (10:00)
== END 2017-01-24 11:23 | disposition home or self-care (01) | DRG 775 ==
LOC: H2EA 08:28 → H1EA 20:26
PROVIDERS: ADMIT Obstetrics & Gynecology; ATTEND Obstetrics & Gynecology
PROC: 10E0XZZ Delivery of Products of Conception, External Approach (ICD-10-PCS; principal; 2017-01-22)
PROC: 10907ZC Drainage of Amniotic Fluid, Therapeutic from Products of Conception, Via Natural or Artificial Opening (ICD-10-PCS; 2017-01-22)
PROC: 3E0P3VZ Introduction of Hormone into Female Reproductive, Percutaneous Approach (ICD-10-PCS; 2017-01-22)
DX: O48.0 Post-term pregnancy (principal); Z23 Encounter for immunization; Z37.0 Single live birth; Z3A.41 41 weeks gestation of pregnancy
CPT/HCPCS: 80307; 81001; 85025; 86900; 86901; J1885; J3010; J7120

== ENCOUNTER 2018-02-03 10:37 | Inpatient (IN) ==
[2018-02-03] MEDS ORDERED: Dextrose 5%/Lactated Ringer's 1,000 ML IV.SIG ONE (11:44)
--- NOTE | 2018-02-03 11:48 | ED ---
History of Present Illness Primary Care Physician: No Primary Care Physician Chief Complaint: Elevated BP & 15+ protein in urine History of Present Illness: 32-year-old female at 39/5 weeks gestation with history of gestational diabetes, asthma and methadone use Presents OB ED for blood pressure up to 160/ 102 and 50+ protein in her urine. Patient denies headache, blurry vision, change in vision, lightheaded dizziness, nausea, vomiting, reflux, or right upper quadrant abdominal pain. Patient was diagnosed with gestational diabetes during this , but states she is not on any insulin. She thinks that the test was incorrect because she "drink fluid right before". Denies contractions, gush of fluid, vaginal bleeding, or decreased movement. Patient is currently in longterm and is accompanied by 2 correctional officers at bedside. Started methadone 70 mg daily about 2 weeks ago. She was started on methadone to avoid opiate withdrawal. Was prescribed opiates chronically for back pain. history: 4 prior pregnancies with induced vaginal deliveries at 42 weeks each time. Denies delivery or complications during this . Past medical history: Asthma, uses albuterol nebulizing treatments. Gestational diabetes during the , not on medication. History of opiate abuse, now on methadone. Hep C. Medications: Methadone 70 mg daily, started 2 weeks ago. Allergies: NKDA Social history: Smokes 1 pack every 3-4 days. Denies alcohol or other drug use during this . Patient was receiving care since the first trimester with Dr. Kirkpatrick, but recently switched to industrial maintenance repairer, Lilian Duenas. [facility] - History History Provided By: Patient - Medical History Medical History: Medical History (Last Updated 02/03/18 @ 14:37 by Lashanda Banuelos DO, R1) Asthma Hepatitis C - Tobacco History Second Hand Smoke Exposure: Yes Smoking Status: Current every day smoker Tobacco Type: Cigarettes Packs Per Day: 0.25 Cigarettes Per Day: 5.0 - Alcohol History How Often Do You Have a Drink Containing Alcohol: 2 to 4 times a month - Substance Use History Substance History: Past History - Travel History Recent Travel in the [place] Within the Last 8 Weeks: No Recent Travel Out of the Country Within the Last 8 Weeks: No Medications and Allergies Allergies Allergy/AdvReac Type Severity Reaction Status Date / Time No Known Allergies Allergy Verified 02/03/18 11:03 Home Medications Medication Instructions Recorded Confirmed Type methadone 70 mg PO DAILY 02/03/18 02/07/18 History Exam Vital signs: Vital Signs 02/03/18 11:06 02/03/18 11:15 Pulse Rate 76 65 Blood Pressure 133/77 124/92 H Intake & Output 02/02/18 02/03/18 02/03/18 18:59 06:59 18:59 Weight 139.706 kg Narrative: GENERAL: Well-nourished, well-developed patient. Patient sleepy during interview, but easily arousable and answering all questions appropriately. SKIN: Warm and dry. HEAD: Normocephalic and atraumatic. EYES: No scleral icterus. No injection or drainage. ENT: No nasal drainage noted. Mucous membranes pink. Airway patent. CARDIOVASCULAR: Regular rate and rhythm without murmurs, gallops, or rubs. RESPIRATORY: Breath sounds equal bilaterally. Mild coarse expiratory wheeze in all lung irwin. No accessory muscle use. ABDOMEN/GI:Obese abdomen soft, non-tender, bowel sounds present, no rebound, no guarding. No right upper quadrant tenderness. Gravid to 39 weeks size FHT's: Category: 1 Baseline: 120-130s Reactive: y Variability: minimal Decels: none, occasional accelerations EXTREMITIES: No cyanosis. 1-2+ pitting edema in bilateral lower extremity. BACK: Nontender without obvious deformity. No CVA tenderness. NEUROLOGICAL: Awake and alert. Motor and sensory grossly within normal limits. Five out of 5 muscle strength in all muscle groups. Normal speech. Results - Labs CBC & Chem 7: 02/03/18 16:14 02/03/18 16:14 Assessment and Plan - Diagnosis (1) 39 weeks gestation of Code(s): Z3A.39 - 39 weeks gestation of Status: Acute (2) Proteinuria affecting in third trimester Code(s): O12.13 - Gestational proteinuria, third trimester Status: Acute (3) Hypertension affecting in third trimester Code(s): O16.3 - Unspecified maternal hypertension, third trimester Status: Acute - Plan 32-year-old female at 39/5 weeks gestation with history of gestational diabetes, asthma and methadone use presents OB ED for blood pressure up to 160/ 102 and 50+ protein in her urine. -Continuous monitoring. FHT initially showed minimal reactivity, or variability. No contractions noted. -CBC, CMP, UA, uric acid, UDS and protein/creatinine ratio ordered. Unable to obtain vascular access. Vascular access team consulted. -IV fluids D5 LR 1 L bolus ordered Update at 13:40PM: -FHT not seen on monitor -Cervical check /-1 at 13:40PM -SROM at 13:45PM in triage sdw Dr. Madison and Dr. Castro - Attending Attestation I personally saw and examined patient with the resident and participated in all potter decision making. Complete review of systems negative except as per HPI. Plan was to admit patient for elevated BP at term, but patient entered active labor and delivered precipitously in [place]. [facility] Discharge Plan - Discharge Order Discharge Orders: Discharge Order (Routine); Ordered 02/05/18 Ordered By: Radha Garcia - Discharge Details Anticipated Discharge Date: 02/05/18 - Physicians Team Primary Care Provider: Primary Care Manju,Yakelin Attending Provider: Ángela Castro
[2018-02-03] MEDS ORDERED: miSOPROStol 200 MCG Tablet ONE ×2 (13:50→13:52)
--- NOTE | 2018-02-03 14:01 | P.HPOB ---
Patient Name: Marla See Date of : 81 Patient Status: Inpatient Attending Provider: Ángela Castro Date: 02/03/18 11:47 Initialization Date: 02/03/18 11:47 History of Present Illness Primary Care Physician: No Primary Care Physician Chief Complaint: Elevated BP & 15+ protein in urine History of Present Illness: 32-year-old female at 39/5 weeks gestation with history of gestational diabetes, asthma and methadone use Presents OB ED for blood pressure up to 160/ 102 and 50+ protein in her urine. Patient denies headache, blurry vision, change in vision, lightheaded dizziness, nausea, vomiting, reflux, or right upper quadrant abdominal pain. Patient was diagnosed with gestational diabetes during this , but states she is not on any insulin. She thinks that the test was incorrect because she "drink fluid right before". Denies contractions, gush of fluid, vaginal bleeding, or decreased movement. Patient is currently in nursing home and is accompanied by 2 correctional officers at bedside. Started methadone 70 mg daily about 2 weeks ago. She was started on methadone to avoid opiate withdrawal. Was prescribed opiates chronically for back pain. history: 4 prior pregnancies with induced vaginal deliveries at 42 weeks each time. Denies delivery or complications during this . Past medical history: Asthma, uses albuterol nebulizing treatments. Gestational diabetes during the , not on medication. History of opiate abuse, now on methadone. Hep C. Medications: Methadone 70 mg daily, started 2 weeks ago. Allergies: NKDA Social history: Smokes 1 pack every 3-4 days. Denies alcohol or other drug use during this . Patient was receiving care since the first trimester with Dr. Kirkpatrick, but recently switched to outside medical sales representative, Lilian Duenas. [facility] - History History Provided By: Patient - Medical History Medical History: Medical History (Last Reviewed 11/22/17 @ 00:20 by Ivon Avila MD) Asthma - Tobacco History Second Hand Smoke Exposure: Yes Smoking Status: Current every day smoker Tobacco Type: Cigarettes Packs Per Day: 0.25 Cigarettes Per Day: 5.0 - Alcohol History How Often Do You Have a Drink Containing Alcohol: 2 to 4 times a month - Substance Use History Substance History: Past History - Travel History Recent Travel in the [facility] Within the Last 8 Weeks: No Recent Travel Out of the Country Within the Last 8 Weeks: No Medications and Allergies Allergies Allergy/AdvReac Type Severity Reaction Status Date / Time No Known Allergies Allergy Verified 02/03/18 11:03 Home Medications Medication Instructions Recorded Confirmed Type insulin regular human [Humulin R 1 unit SUBCUT QID 02/03/18 02/03/18 History Regular U-100 Insuln] methadone 70 mg PO DAILY 02/03/18 02/03/18 History Exam Vital signs: Vital Signs 02/03/18 11:06 02/03/18 11:15 Pulse Rate 76 65 Blood Pressure 133/77 124/92 H Intake & Output 02/02/18 02/03/18 02/03/18 18:59 06:59 18:59 Weight 139.706 kg Narrative: GENERAL: Well-nourished, well-developed patient. Patient sleepy during interview, but easily arousable and answering all questions appropriately. SKIN: Warm and dry. HEAD: Normocephalic and atraumatic. EYES: No scleral icterus. No injection or drainage. ENT: No nasal drainage noted. Mucous membranes pink. Airway patent. CARDIOVASCULAR: Regular rate and rhythm without murmurs, gallops, or rubs. RESPIRATORY: Breath sounds equal bilaterally. Mild coarse expiratory wheeze in all lung irwin. No accessory muscle use. ABDOMEN/GI:Obese abdomen soft, non-tender, bowel sounds present, no rebound, no guarding. No right upper quadrant tenderness. Gravid to 39 weeks size FHT's: Category: 1 Baseline: 120s Reactive: y Variability: moderate Decels: none, occasional accelerations EXTREMITIES: No cyanosis. 1-2+ pitting edema in bilateral lower extremity. BACK: Nontender without obvious deformity. No CVA tenderness. NEUROLOGICAL: Awake and alert. Motor and sensory grossly within normal limits. Five out of 5 muscle strength in all muscle groups. Normal speech. Assessment and Plan - Diagnosis (1) 39 weeks gestation of Code(s): Z3A.39 - 39 weeks gestation of Status: Acute (2) Proteinuria affecting in third trimester Code(s): O12.13 - Gestational proteinuria, third trimester Status: Acute (3) Hypertension affecting in third trimester Code(s): O16.3 - Unspecified maternal hypertension, third trimester Status: Acute - Plan 32-year-old female at 39/5 weeks gestation with history of gestational diabetes, asthma and methadone use presents OB ED for blood pressure up to 160/ 102 and 50+ protein in her urine. -Continuous monitoring. FHT initially showed minimal reactivity, or variability. No contractions noted. -CBC, CMP, UA, uric acid, UDS and protein/creatinine ratio ordered. Unable to obtain vascular access. Vascular access team consulted. -IV fluids D5 LR 1 L bolus ordered Update at 13:40 PM: -FHT not seen on monitor -Cervical check /-1 at 13:40PM -SROM at 13:45PM in triage Update at 13:57 PM: -Patient in active labor at 13:45 PM. Delivery team called at 13:47PM and male precipitously delivered at 13:48PM in OB ED triage room. -No labs available, unknown GBS status. sdw Dr. Matthew Miller personally saw and examined patient with the resident and participated in all potter decision making. Complete review of systems negative except as noted in HPI. Reassuring testing. Plan was to admit patient for elevated BP at term, but was awaiting IV access. Patient entered active labor in [place] and delivered precipitously. SMS
--- NOTE | 2018-02-03 14:03 | P.OBDELI ---
Weeks Gestation: 39 Anesthesia: None Episiotomy: none Vaginal Delivery: Normal, Spontaneous Nuchal Cord: None Delayed Cord Clamping (45 sec): Yes Placenta: Spontaneous delivery, Intact, Cord pH Laceration: None Estimated blood loss (mL): 200 : Male Male A Infant Delivery Date: 02/03/18 Delivery Time: 13:48 score (1 min): 8 score (5 min): unknown Additional Information: SROM at 13:45PM.
[2018-02-03] MEDS ORDERED: Benzocaine 20% Top Spray 60 ML Can TOPICAL PRN (14:04)
[2018-02-03] MEDS ORDERED: Zolpidem Tartrate 5 MG Tablet PO PRN (14:04)
[2018-02-03] MEDS ORDERED: Oxytocin 30 Units/500ml Premix 30 UNITS/500 ML BAG IV.CONT PRN (14:04)
[2018-02-03] MEDS ORDERED: Bisacodyl 10 MG Supp RECTAL PRN (14:04)
[2018-02-03] MEDS ORDERED: Naloxone Inj 0.4 MG/ML Vial IV.PUSH PRN (14:04)
[2018-02-03] MEDS ORDERED: Witch Hazel 50%/Glyderin 12.5% 40 Pad Jar RECTAL PRN (14:04)
[2018-02-03 14:17] LABS: Bilirubin,Urine Negative (Negative); Clarity,Urine Clear (Clear); Color,Urine Yellow (Yellw/Straw); Glucose,Urine (UA) Negative (Negative); Leukocyte Esterase,Urine Trace (Negative); Mucus,Urine Few /lpf (Occasional); Nitrite,Urine Negative (Negative); Specific Gravity,Urine 1.018 (1.002-1.035); Squamous Epithelial Cell,Urine 5 /hpf (0-5); Urobilinogen,Urine 4 or Greater mg/dL (Less than 2)
--- NOTE | 2018-02-03 14:17 | P.PN ---
Subjective Interval history: Delivery Note The patient was still in the [place], room 2 and we were notified of imminent delivery and presented immediately to room. The patient delivered the precipitously and the was placed on the maternal abdomen and vigorous with stimulation. The cord was double clamped and cut after >1 minute. Cord blood was obtained for the nursery and the placenta delivered spontaneously. The placenta appeared intact. No lacerations were noted. Apgars 8/8. taken for assessment in NICU as the patient was not in a delivery room. EBL 200cc. Mother and doing well. Physical Exam Vital signs: Vital Signs 02/03/18 11:06 02/03/18 11:15 02/03/18 11:51 Pulse Rate 76 65 61 Blood Pressure 133/77 124/92 H 114/74 Intake & Output 02/02/18 02/03/18 02/03/18 18:59 06:59 18:59 Weight 139.706 kg
[2018-02-03 14:20] LABS: Amphetamine Urine With Conf Neg (Neg); Benzodiazepine Urine With Conf Neg (Neg); Cocaine Urine With Conf Neg (Neg); Opiates Urine With Conf Neg (Neg); Protein/Creatinine Ratio,Urine 0.12 (0.00-0.14); Total Protein,Urine Random 14.8 mg/dL (0-11.8)
[2018-02-03 14:23] LABS: Cannabinoid Urine With Conf Pos (Neg)
[2018-02-03] MEDS ORDERED: miSOPROStol 200 MCG Tablet VAGINAL ONE (14:26)
[2018-02-03] MEDS ORDERED: Varicella Vaccine Live 1350 UNITS/0.5 ML Vial SQ ONE (16:00)
[2018-02-03] MEDS ORDERED: Diphtheria/Tetanus/Pertussis Vaccine Inj 0.5 ML Syringe IM ONE (16:00)
[2018-02-03] MEDS ORDERED: Measles/Mumps/Rubella Vaccine Inj 0.5 ML Vial SQ ONE (16:00)
[2018-02-03 16:26] LABS: Hematocrit 30.4 % (35.0-46.0); Hemoglobin 9.9 gm/dL (11.6-15.3); Mean Corpuscular HGB Conc 32.5 % (32.0-36.0); Mean Corpuscular Hemoglobin 24.1 pg (27.0-34.0); Mean Corpuscular Volume 74.3 fL (80.0-100.0); Mean Platelet Volume 9.7 fL (7.0-11.0); Platelet Count 214 th/mm3 (150-450); Red Blood Count 4.09 mil/mm3 (4.00-5.30); Red Cell Distribution Width 16.9 % (11.6-17.2); White Blood Count 11.6 th/mm3 (4.0-11.0)
[2018-02-03] MEDS: Acetaminophen 325 MG Tablet PO PRN ×2 (16:46→22:05)
[2018-02-03 16:49] LABS: Alanine Aminotransferase 43 U/L (10-53); Albumin 2.3 g/dL (3.4-5.0); Anion Gap 10 meq/L (5-15); Aspartate Aminotransferase 53 U/L (15-37); Blood Urea Nitrogen 12 mg/dL (7-18); Calcium 8.7 mg/dL (8.5-10.1); Carbon Dioxide 26.8 meq/L (21.0-32.0); Chloride 100 meq/L (98-107); Glomerular Filtration Rate Greater Than 89 mL/min (>89); Glucose,Random 80 mg/dL (74-106); Potassium 4.2 meq/L (3.5-5.1); Sodium 137 meq/L (136-145); Uric Acid 5.9 mg/dl (2.6-6.0)
[2018-02-03 16:51] LABS: Alkaline Phosphatase 120 U/L (45-117); Total Protein 7.1 g/dL (6.4-8.2)
[2018-02-03 17:23] LABS: Hepatitis B Surface Antibody 24.85 mIU/mL
[2018-02-03 18:24] LABS: Hepatitits B Surface Antigen Nonreactive (Nonreactive)
[2018-02-03] MEDS: Senna/Docusate Sodium 8.6/50 MG Tablet PO SCH (22:05)
[2018-02-04] MEDS: Acetaminophen 325 MG Tablet PO PRN (07:13)
[2018-02-04] MEDS: Methadone Liq 10 MG/10 ML UDC PO SCH (09:02)
[2018-02-04] MEDS: Senna/Docusate Sodium 8.6/50 MG Tablet PO SCH ×2 (09:02→21:56)
[2018-02-04] MEDS ORDERED: medroxyPROGESTERone Acetate Inj 150 MG/ML Syringe IM ONE (10:05)
--- NOTE | 2018-02-04 10:05 | P.PNOB ---
Subjective Post day: 1 Interval history: Patient is a 32-year-old delivered at 39 weeks and 5 days. Patient is day 1 after NVD. Patient's pain is well-controlled. Patient reports minimal bleeding. Patient reports eating and drinking without any nausea or vomiting. Patient has passed gas but has not had a bowel movement. Patient denies chest pain and shortness of breath. Patient has been ambulating; she denies lower extremity pain. Patient reports desire for contraception; she requests DEPO shot. Patient has decided to formula-feed. Of note, CM and DCF involved for maternal drug use history as well as recent incarceration. Objective Vital Signs/I&O: Vital Signs 02/03/18 11:06 02/03/18 11:15 02/03/18 11:51 Temperature Pulse Rate 76 65 61 Respiratory Rate Blood Pressure 133/77 124/92 H 114/74 02/03/18 12:00 02/03/18 13:50 02/03/18 14:25 Temperature 98.0 F Pulse Rate 69 Respiratory Rate 18 18 Blood Pressure 127/69 02/03/18 14:51 02/03/18 15:01 02/03/18 15:55 Temperature 99.1 F Pulse Rate 78 87 78 Respiratory Rate 18 Blood Pressure 128/78 139/91 H 151/84 H 02/03/18 20:00 02/04/18 08:00 Temperature 98.3 F 97.6 F Pulse Rate 86 82 Respiratory Rate 20 20 Blood Pressure 150/71 H 134/84 Intake & Output 02/03/18 02/04/18 02/04/18 18:59 06:59 18:59 Weight 139.706 kg Result Diagrams: 02/03/18 16:14 02/03/18 16:14 Objective Remarks: GENERAL: Well-nourished, well-developed patient. CARDIOVASCULAR: Regular rate and rhythm without murmurs, gallops, or rubs. RESPIRATORY: Breath sounds equal bilaterally. No accessory muscle use. ABDOMEN/GI: Abdomen soft, non-tender. Fundus: Firm, non-tender at umbilicus. GENITOURINARY: Light to moderate bleeding. EXTREMITIES: No cyanosis or edema, non-tender, without signs of DVT. Medications and IVs: Active Medications Acetaminophen (Tylenol) 650 mg PO Q4H PRN PRN Reason: PAIN SCALE 1 TO 2 Last Admin: 02/04/18 07:13 Dose: 650 mg Al Hydroxide/Mg Hydroxide (Milk Of Magnesia Liq) 30 ml PO Q12H PRN PRN Reason: Mild Constipation Albuterol (Albuterol Neb (Prn)) 2.5 mg NEB Q6HR NEB PRN PRN Reason: SHORTNESS OF BREATH Benzocaine (Americaine 20% Top [place]) 1 spray TOPICAL Q4H PRN PRN Reason: For Perineum Discomfort Bisacodyl (Dulcolax Supp) 10 mg RECTAL DAILY PRN PRN Reason: SEVERE CONSITIPATION Oxytocin (Pitocin 30 Units/Ns 500 Ml Premix) 30 units in 500 mls @ 100 mls/hr IV.CONT UNSCH PRN PRN Reason: Heavy bleeding Ibuprofen (Motrin) 800 mg PO Q8H PRN PRN Reason: PAIN SCALE 6 TO 10 Last Admin: 02/04/18 07:12 Dose: 800 mg Lactulose (Lactulose Liq) 30 ml PO DAILY PRN PRN Reason: SEVERE CONSITIPATION Methadone HCl (Methadone Liq) 70 mg PO DAILY [facility] Last Admin: 02/04/18 09:02 Dose: 70 mg Naloxone HCl (Narcan Inj) 0.1 mg IV.PUSH Q2M PRN PRN Reason: for opiate reversal Ondansetron HCl (Zofran Odt) 4 mg PO Q6H PRN PRN Reason: NAUSEA OR VOMITING Senna/Docusate Sodium (Josefina-Colace) 1 tab PO BID [facility] Last Admin: 02/04/18 09:02 Dose: 1 tab Sennosides (Senokot) 17.2 mg PO Q12H PRN PRN Reason: Moderate Constipation Sodium Chloride (Ns Flush) 2 ml IV.FLUSH BID [facility] Last Admin: 02/03/18 22:04 Dose: 2 ml Sodium Chloride (Ns Flush) 2 ml IV.FLUSH PRN PRN PRN Reason: FLUSH AFTER USING IV ACCESS Witch Zelda/Glycerin (Tucks Pads) 1 applicatio RECTAL QID PRN PRN Reason: HEMORRHOIDS Zolpidem Tartrate (Ambien) 5 mg PO HS PRN PRN Reason: SLEEP Assessment and Plan - Diagnosis (1) complicated by maternal drug use, delivered, curr hospitaliz Code(s): O99.324 - Drug use complicating childbirth; F19.90 - Other psychoactive substance use, unspecified, uncomplicated Status: Acute (2) 39 weeks gestation of Code(s): Z3A.39 - 39 weeks gestation of Status: Acute (3) Vaginal delivery Code(s): O80 - Encounter for full-term uncomplicated delivery Status: Acute - Plan Patient is a 32-year-old delivered at 39 weeks and 5 days. Patient is day 1 after NVD. Continue routine care. Motrin and Percocet when necessary for pain. Encourage OOB. Pelvic rest for 6 weeks will need follow-up appointment at that time. Contraception: DEPO shot. CM and DCF involved. Anticipate discharge tomorrow. dw OB hospitalist - Attending Attestation I personally saw and examined patient with the resident and participated in all potter decision making. Continue routine care, routine instructions given, anticipate discharge tomorrow. SMS
[2018-02-05 08:24] VITALS: BP 129/77; PULSE 73; RESP 20; TEMP 98
--- NOTE | 2018-02-05 08:29 | P.PNOB ---
Subjective Post day: 2 Interval history: Patient is a 32-year-old delivered at 39 weeks and 5 days. Patient is day 2 after NVD. Patient's pain is well-controlled. Patient reports minimal bleeding. Patient reports eating and drinking without any nausea or vomiting. Patient has passed gas and has had a bowel movement. Patient denies chest pain and shortness of breath. Patient has been ambulating; she denies lower extremity pain. Patient reports desire for contraception; she requests DEPO shot. Patient has decided to formula-feed. Of note, CM and DCF involved for maternal drug use history as well as recent incarceration. Objective Vital Signs/I&O: Vital Signs 02/04/18 15:26 02/04/18 20:00 02/05/18 08:00 Temperature 98.1 F 98.0 F Pulse Rate 90 64 73 Respiratory Rate 20 18 20 Blood Pressure 146/81 H 129/77 Result Diagrams: 02/03/18 16:14 02/03/18 16:14 Objective Remarks: GENERAL: Well-nourished, well-developed patient. CARDIOVASCULAR: Regular rate and rhythm without murmurs, gallops, or rubs. RESPIRATORY: Breath sounds equal bilaterally. No accessory muscle use. ABDOMEN/GI: Abdomen soft, non-tender. Fundus: Firm, non-tender at umbilicus. GENITOURINARY: Light to moderate bleeding. EXTREMITIES: Bilateral edema in lower extremities. No cyanosis, non-tender, without signs of DVT. Medications and IVs: Active Medications Acetaminophen (Tylenol) 650 mg PO Q4H PRN PRN Reason: PAIN SCALE 1 TO 2 Last Admin: 02/04/18 07:13 Dose: 650 mg Al Hydroxide/Mg Hydroxide (Milk Of Magnesia Liq) 30 ml PO Q12H PRN PRN Reason: Mild Constipation Albuterol (Albuterol Neb (Prn)) 2.5 mg NEB Q6HR NEB PRN PRN Reason: SHORTNESS OF BREATH Last Admin: 02/04/18 15:28 Dose: 2.5 mg Benzocaine (Americaine 20% [place]) 1 spray TOPICAL Q4H PRN PRN Reason: For Perineum Discomfort Bisacodyl (Dulcolax Supp) 10 mg RECTAL DAILY PRN PRN Reason: SEVERE CONSITIPATION Oxytocin (Pitocin 30 Units/Ns 500 Ml Premix) 30 units in 500 mls @ 100 mls/hr IV.CONT UNSCH PRN PRN Reason: Heavy bleeding Ibuprofen (Motrin) 800 mg PO Q8H PRN PRN Reason: PAIN SCALE 6 TO 10 Last Admin: 02/04/18 07:12 Dose: 800 mg Lactulose (Lactulose Liq) 30 ml PO DAILY PRN PRN Reason: SEVERE CONSITIPATION Methadone HCl (Methadone Liq) 70 mg PO DAILY [facility] Last Admin: 02/04/18 09:02 Dose: 70 mg Naloxone HCl (Narcan Inj) 0.1 mg IV.PUSH Q2M PRN PRN Reason: for opiate reversal Ondansetron HCl (Zofran Odt) 4 mg PO Q6H PRN PRN Reason: NAUSEA OR VOMITING Senna/Docusate Sodium (Josefina-Colace) 1 tab PO BID [facility] Last Admin: 02/04/18 21:56 Dose: Not Given Sennosides (Senokot) 17.2 mg PO Q12H PRN PRN Reason: Moderate Constipation Sodium Chloride (Ns Flush) 2 ml IV.FLUSH BID [facility] Last Admin: 02/04/18 21:56 Dose: Not Given Sodium Chloride (Ns Flush) 2 ml IV.FLUSH PRN PRN PRN Reason: FLUSH AFTER USING IV ACCESS Witch Zelda/Glycerin (Tucks Pads) 1 applicatio RECTAL QID PRN PRN Reason: HEMORRHOIDS Zolpidem Tartrate (Ambien) 5 mg PO HS PRN PRN Reason: SLEEP Assessment and Plan - Diagnosis (1) complicated by maternal drug use, [facility] Code(s): O99.324 - Drug use complicating childbirth; F19.90 - Other psychoactive substance use, unspecified, uncomplicated Status: Acute (2) 39 weeks gestation of Code(s): Z3A.39 - 39 weeks gestation of Status: Acute (3) Vaginal delivery Code(s): O80 - Encounter for full-term uncomplicated delivery Status: Acute - Plan Patient is a 32-year-old delivered at 39 weeks and 5 days. Patient is day 2 after NVD. Continue routine care. Motrin and Percocet when necessary for pain. Encourage OOB. Pelvic rest for 6 weeks will need follow-up appointment at that time. Contraception: DEPO shot. CM and DCF involved. Anticipate discharge today. jose eduardo OB hospitalist
[2018-02-05] MEDS: Senna/Docusate Sodium 8.6/50 MG Tablet PO SCH (08:57)
[2018-02-05] MEDS: Methadone Liq 10 MG/10 ML UDC PO SCH (08:58)
[2018-02-05] MEDS: Acetaminophen 325 MG Tablet PO PRN (10:36)
[2018-02-06 07:53] LABS: Hepatitis C RNA (PCR) log IUs 5.85
[2018-02-07 10:59] LABS: RPR Screen For Reflex FTA Nonreactive (Nonreactive)
== END 2018-02-05 18:49 | disposition home or self-care (01) | DRG 806 ==
LOC: HOBED 10:37 → H2E 13:40 → H1EA 15:18
PROVIDERS: ADMIT Obstetrics & Gynecology; ATTEND Obstetrics & Gynecology
CPT/HCPCS: 59025; 76937; 80053; 80101; 80301; 80307; 81001; 82570; 84155; 84157; 84550; 85027; 86317; 86592; 86705; 87340; 87389; 87522; 90715; 94664; 99285; G0431; G0479; G0481; G0483; J1050; J2590